=== PATIENT | male | born 1960 | race American Indian/Alaskan Native ===

== ENCOUNTER 2018-12-19 08:18 | Emergency (ER) | payer BC ==
--- NOTE | 2018-12-19 08:55 | EDM.PDOC ---
ED HPI GENERAL MEDICAL PROBLEM - General Chief Complaint: Eye Problems Stated Complaint: EYE COMPLAINT Time Seen by Provider: 12/19/18 08:55 Source of Information: Reports: Patient History Limitations: Reports: No Limitations - History of Present Illness INITIAL COMMENTS - FREE TEXT/NARRATIVE: 58-year-old male presents the ED with right form body sensation in his eye for the last 2 days. Patient was grinding metal on Thursday at work and felt something bounce off of his cheek. He felt it enter his eye. He could never identify a foreign body. Started to have irritation of the right eye on Thursday evening December 17. Bothered him all day yesterday with excessive tearing and foreign body sensation. The eye did not have any purulent material this morning. It is very sensitive 30 of the sunlight. He did irrigate the eye thoroughly yesterday while at work. Does wear eyeglasses. He did have these on when he was grinding metal. Onset: Sudden Onset Date: 12/17/18 Onset Time: 15:30 Duration: Day(s):, Constant, Getting Worse Location: Reports: Face (Foreign body sensation right eye) Quality: Reports: Ache, Other Severity: Moderate (Foreign body sensation) Improves with: Reports: None Worsens with: Reports: Other (Looking at sunlight.) Context: Reports: Trauma (Was grinding metal on Thursday when he felt something enter his right eye). 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 (see below) (None.) Right Eye Pain Score (Numeric/FACES): 2 - Related Data Allergies Allergy/AdvReac Type Severity Reaction Status Date / Time No Known Allergies Allergy Verified 12/19/18 08:27 Home Meds: Home Meds Lisinopril 10 mg PO DAILY 12/19/18 [History] Past Medical History HEENT History: Reports: Impaired Vision Cardiovascular History: Reports: Hypertension Social & Family History - Tobacco Use Smoking Status *Q: Never Smoker - Caffeine Use Caffeine Use: Reports: Coffee - Living Situation & Occupation Living situation: Reports: Occupation: Employed ED ROS GENERAL - Review of Systems Review Of Systems: See Below Constitutional: Denies: Fever, Chills, Malaise, Weakness, Fatigue HEENT: Reports: Eye Pain (Form body sensation right eye for 2 days), Glasses. Denies: Contact Lenses Respiratory: Reports: No Symptoms Cardiovascular: Reports: Blood Pressure Problem. Denies: Chest Pain Endocrine: Reports: No Symptoms GI/Abdominal: Reports: No Symptoms : Reports: No Symptoms Musculoskeletal: Reports: Back Pain Skin: Reports: No Symptoms Neurological: Reports: No Symptoms Psychiatric: Reports: No Symptoms Hematologic/Lymphatic: Reports: No Symptoms Immunologic: Reports: No Symptoms ED EXAM GENERAL W FULL EYE - Physical Exam Exam: See Below Exam Limited By: No Limitations General Appearance: Alert, WD/WN, Mild Distress Eye Exam: Bilateral Eye: Normal Inspection (Surgical for body in the eye proved to be negative. Right upper lid was everted with no foreign bodies identified. There is slight swelling of the medial canthus of his eye. Slight conjunctival injection inferior conjunctiva. Examination with slit lamp reveals a corneal abrasion at the 3 o'clock position adjacent to the pupil. About 4 mm from the limbus. No foreign bodies were identified.), PERRL With Correction: Yes Eyelids: Right: Normal Appearance, Lid Everted for Exam (No foreign bodies identified.) Conjunctiva & Sclera: Right: Injected (Mild injection of the conjunctiva inferiorly. Medial canthus of the eyes slightly edematous as well.) Cornea Exam: Right: Corneal Abrasion (Corneal abrasion at the 3 o'clock position 4 mm from the limbus right near the pupil.) Extraocular Movements: Bilateral: Intact Pupillary Size: Bilateral: 5 mm Pupillary Reaction: Bilateral: Brisk Anterior Chamber: Bilateral: Normal Appearance Course - Vital Signs Last Recorded V/S: Last Vital Signs Temp 36.2 C 12/19/18 08:25 Pulse 73 12/19/18 08:25 Resp 16 12/19/18 08:25 BP 161/94 H 12/19/18 08:25 Pulse Ox 95 12/19/18 08:25 - Orders/Labs/Meds Meds: Medications Discontinued Medications Generic Name Dose Route Start Last Admin Trade Name Jorge PRN Reason Stop Dose Admin Ciprofloxacin 2.5 ml 12/19/18 09:07 12/19/18 09:28 Ciloxan 0.3% Ophth Soln EYERT 12/19/18 09:08 2.5 ml ONETIME ONE Administration Ketorolac Tromethamine 2.5 ml 12/19/18 09:07 12/19/18 09:27 Acular 0.5% Ophth Soln EYERT 12/19/18 09:08 2.5 ml ONETIME ONE Administration - Radiology Interpretation Free Text/Narrative:: 58-year-old male presents to the ED with foreign body sensation in his right eye since grinding metal on work on December 17 in the p.m. He felt something hit his cheek and then he thought maybe bowels into his right eye. The right eye started to give him's pain and foreign body sensation early in the morning on December 18. He put up with it all day yesterday with excessive tearing and discomfort. This morning he comes to the ED for evaluation. He did irrigate the eye thoroughly yet at work yesterday with no foreign body identified. Examination here did not reveal any foreign bodies under the eyelid or on the cornea or conjunctiva. There is a small corneal abrasion fairly superficial at the 3 o'clock position adjacent to the pupil approximately 4 mm from the limbus. Treatment will be ketorolac eyedrops 2 drops to the right eye every 6 hours for 1 day. 2 drops of Cipro ophthalmic antibiotic drops every 8 hours today and tomorrow. Right eye is to be patched closed for the next 24 hours. May take off patch tomorrow morning. For review and 36 hours if not completely back to normal Departure - Departure Time of Disposition: 09:08 Disposition: Home, Self-Care 01 Condition: Fair Clinical Impression: Corneal abrasion Qualifiers: Encounter type: initial encounter Laterality: right Qualified Code(s): S05.01XA - Injury of conjunctiva and corneal abrasion without foreign body, right eye, initial encounter - Discharge Information *PRESCRIPTION DRUG MONITORING PROGRAM REVIEWED*: Not Applicable *COPY OF PRESCRIPTION DRUG MONITORING REPORT IN PATIENT FLOYD: Not Applicable Instructions: Corneal Abrasion Referrals: Charito Sloan PA-C [Primary Care Provider] - Forms: ED Department Discharge Additional Instructions: Evaluation the emergency room this morning in regards to persistent right eye irritation and foreign body sensation since Thursday. This occurred after grinding metal when he felt something bones after cheek and likely anterior eye. Developed right eye tenderness and soreness on the evening of December 17 which is persisted all day yesterday as well. Examination did not reveal any foreign body identified within the eye under the eyelid or on the cornea. I did identify a corneal abrasion at the 3 o'clock position just adjacent to the pupil. This is a scratch of the cornea or eyeball. This makes it feel like there is still something in her eye. Treatment is ketorolac drops 2 drops every 6 hours as needed for relief of pain and discomfort. Antibiotic Cipro drops 2 drops to the right eye 3 times daily for the next 2 days to prevent secondary infection. Right eye she may remain patched closed and only taken off to allow drops to be placed today but may leave off by tomorrow morning. The corneal abrasion should be at least 90% healed by that time. Please are back to normal by tomorrow evening should be seen again.
[2018-12-19] MEDS ORDERED: Ciprofloxacin 0.3% Ophth Soln 5 ML Bottle EYERT ONE (09:07)
[2018-12-19] MEDS ORDERED: Ketorolac 0.5% Ophth Soln 5 ML Bottle EYERT ONE (09:07)
== END 2018-12-19 09:30 | disposition home or self-care (01) ==
LOC: JD.ED 08:18
DX: S05.01XA Injury of conjunctiva and corneal abrasion without foreign body, right eye, initial encounter (principal); I10 Essential (primary) hypertension; Z79.899 Other long term (current) drug therapy
CPT/HCPCS: 99283; A9270